=== PATIENT | female | born 1980 | race Caucasian/White ===

== ENCOUNTER 2024-07-09 08:26 | Outpatient (AMB) | payer BC, SELFPAY ==
--- NOTE | 2024-07-09 08:40 | AMB.GYNCLNOT ---
Vital Signs 07/09/24 08:51 Height 1.6 m Height Method Stated Weight 83.461 kg Weight Measurement Method Standing Scale BMI 32.5 BP 142/94 H Blood Pressure Source Automatic Cuff Blood Pressure Location Right Upper Arm Position Sitting Respiration 17 Pulse 74 Pulse Source Monitor Temp 97.1 F Temp Source Temporal Artery Scan Pulse Oximetry (%) 98 Oxygen Delivery Method Room Air Allergies/Home Meds Allergies & Medications Allergies No Known Allergies Allergy (Verified 07/09/24 12:57) Medication Reconciliation No Known Home Medications 07/09/24 [History Confirmed 07/09/24] Intake Visit Data Collection New Patient or Established: New Patient (never been to [facility]) Reason for Visit:: ANNUAL EXAM Seen by Clinical Staff ONLY (RN/MA): No Technical Training Specialist Required: No Do You Feel Safe at Home: Yes Authorities Contacted: N/A PCP or OBGYN visit in last 3 months: No Hx Now: No Are you currently on any form of Control: No Last menstrual period: 06/29/24 Pain Present Currently: No Pain Scale Used: Hooker-Scott/Numerical Pain scale:: 0 Smoking Status Smoking Status: Never smoker 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 Went off it. They have not been preventing then since then. They have not gotten . The patient does not desire control but she also does not desire another . 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 1. Little interest or pleasure in doing things: not at all 2. Feeling down, depressed, or hopeless: not at all Total score: 0 PHQ-9 3. Trouble falling or staying asleep, or sleeping too much: Not at all 4. Feeling tired or having little energy: Not at all 5. Poor appetite or overeating: Not at all 6. Feeling bad about yourself - or that you are a failure or have let yourself or your family down: Not at all 7. Trouble concentrating on things, such as reading the newspaper or watching television: Not at all 8. Moving or speaking so slowly that other people could have noticed? - Or the opposite - being so fidgety or restless that you have been moving around a lot more than usual: not at all 9. Thoughts that you would be better off or of hurting yourself in some way: Not at all Total score: 0 If you checked off any problems, how difficult have these problems made it for you to do your work, take care of things at home, or get along with other people?: not difficult at all Source: Developed by Drs. Vini Ruiz, Amara Alcaraz, Min Ramesh and colleagues, with an educational zahira from [employer]. 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 Has 3 sons, Syed 23, Linus 12, Nadir 6. Tobacco History Smoking Status: Never smoker Alcohol History Alcohol Intake: Current Alcohol Intake Frequency: holidays/special occasions only Domestic Abuse History Do You Feel Safe at Home: Yes History of Present Illness HPI Narrative The patient is a 44-year-old -0-1-3 history of vaginal delivery x 3 in the past with 1 miscarriage who presents for an annual exam. She used to see me in [place]. Her cycles are still regular with moderate flow 28 days apart lasting about 6 days. The patient was on the control patch until 2 years ago. She then stopped control to see if she could get . They have been not preventing for greater than 2 years and have not achieved . The patient states now she thinks she is too old. She declines an IUD, control pills, the patch, the ring or Nexplanon for control. She does decline surgical management in the form of a tubal ligation. The patient will continue use timing for contraception. Review of Systems Review of Systems Narrative Review of Systems: The patient denies pelvic pain, abnormal discharge, or bleeding between cycles. She did denies incontinence. No breast complaints. No hot flashes, no night sweats. Her last Pap was a year ago. Exam General Limitations: no limitations General Appearance: alert, in no apparent distress, comfortable, cooperative, healthy appearing, well developed and well groomed Neck Neck exam: Present normal inspection, full ROM and trachea midline Chest Chest inspection: Present normal inspection and symmetric chest wall rise Exp Chest Breast: bilateral: other (Normal breast exam bilaterally. Breast implants bilaterally.) Resp Respiratory exam: Present normal lung sounds bilaterally Card Cardiovascular exam: Present regular rate, normal rhythm and normal heart sounds Abdominal Abdominal exam: Present soft and scar (Large abdominoplasty scar present) External exam: Present normal external exam Speculum exam: Present normal speculum exam and other (Some descensus of the pelvic sidewalls no significant cystocele or rectocele present no uterine prolapse.) Bimanual exam: Present normal bimanual exam (Anteverted) Extremities Extremities exam: Present normal inspection and full ROM Psych Psychiatric exam: Present normal affect and normal mood Skin Skin exam: Present warm, dry, intact and normal color Office Procedures OB Clinic LOC & Office Proc's Nursing/Assessment Patient Status: Initial/New Patient OB Clinic Nursing Assessment: Medication Reconciliation, Update PMH in EMR and Vital Signs OB Clinic Coordination of Care: Education Complex Pt/Fam, Consent,records obtained, informed consent, Lab and Imaging orders and Staff clarify orders Miscellaneous Interventions: Breast Exam and Pelvic/Pap Smear Set up New Patient Charge New Patient Point Assignment: 1129 New Patient Point Charge: BOWL TURNER Level 4 ([id number]) In Clinic Procedures Pap Smear: Yes Assessment & Plan Diagnosis / Problem List (1) Women's annual routine gynecological examination: Status: Acute Assessment and Plan: Pap with high-risk HPV performed. Breast exam done and encouraged. Mammogram ordered. Primary care names given. Patient will follow-[facility] at [facility] with Dr. White for primary care. She will follow-up yearly or as needed. She will need colon screening through her primary care. TODDLER NANNY: Papsmear Pap Smear Procedure Chaparone in room during procedure?: No Pre-op diagnosis general: Annual Exam Post-op diagnosis procedure note: Same Procedure Notes:: Pap with cotesting to HPV performed Papsmear completed: yes
--- NOTE | 2024-07-09 08:50 | AMB.GYNCLNOT ---
Vital Signs 07/09/24 08:51 Height 1.6 m Height Method Stated Weight 83.461 kg Weight Measurement Method Standing Scale BMI 32.5 BP 142/94 H Blood Pressure Source Automatic Cuff Blood Pressure Location Right Upper Arm Position Sitting Respiration 17 Pulse 74 Pulse Source Monitor Temp 97.1 F Temp Source Temporal Artery Scan Pulse Oximetry (%) 98 Oxygen Delivery Method Room Air Allergies/Home Meds Allergies & Medications Allergies No Known Allergies Allergy (Verified 07/09/24 08:44) Medication Reconciliation No Known Home Medications 07/09/24 [History Confirmed 07/09/24] Intake Visit Data Collection New Patient or Established: New Patient (never been to [facility]) Reason for Visit:: ANNUAL EXAM Seen by Clinical Staff ONLY (RN/MA): No Juice Standardizer Required: No Do You Feel Safe at Home: Yes Authorities Contacted: N/A PCP or OBGYN visit in last 3 months: No Hx Now: No Are you currently on any form of Control: No Last menstrual period: 06/29/24 Pain Present Currently: No Pain Scale Used: Hooker-Scott/Numerical Pain scale:: 0 Smoking Status Smoking Status: Never smoker 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 1. Little interest or pleasure in doing things: not at all PHQ-9 3. Trouble falling or staying asleep, or sleeping too much: Not at all 4. Feeling tired or having little energy: Not at all 5. Poor appetite or overeating: Not at all 6. Feeling bad about yourself - or that you are a failure or have let yourself or your family down: Not at all 7. Trouble concentrating on things, such as reading the newspaper or watching television: Not at all 8. Moving or speaking so slowly that other people could have noticed? - Or the opposite - being so fidgety or restless that you have been moving around a lot more than usual: not at all Source: Developed by Drs. Vini LAmara Mejia Kurt Kroenke and colleagues, with an educational zahira from [employer]. Social History Living Situation History Marital Status: Lives With: Family Housing: House Tobacco History Smoking Status: Never smoker Alcohol History Alcohol Intake: Current Alcohol Intake Frequency: holidays/special occasions only Domestic Abuse History Do You Feel Safe at Home: Yes Office Procedures OB Clinic LOC & Office Proc's Nursing/Assessment Patient Status: Initial/New Patient OB Clinic Nursing Assessment: Medication Reconciliation, Update PMH in EMR and Vital Signs OB Clinic Coordination of Care: Education Complex Pt/Fam, Consent,records obtained, informed consent, Lab and Imaging orders and Staff clarify orders Miscellaneous Interventions: Breast Exam and Pelvic/Pap Smear Set up New Patient Charge New Patient Point Assignment: 1129 New Patient Point Charge: VOCATIONAL REHABILITATION CONSULTANT Level 4 ([id number]) In Clinic Procedures Pap Smear: Yes MARKETING BUSINESS ANALYST: Papsmear Pap Smear Procedure Chaparone in room during procedure?: No Post-op diagnosis procedure note: Same Papsmear completed: yes
[2024-07-09 08:51] VITALS: BP 142/94; PULSE 74; RESP 17; TEMP 36.2; O2SAT 98; BMI 32.5
== END 2024-07-09 09:19 | disposition home or self-care (01) ==
LOC: HODSOBC 08:26
PROVIDERS: Supervising Provider Obstetrics & Gynecology; Visit Provider Obstetrics & Gynecology
DX: Z01.419 Encounter for gynecological examination (general) (routine) without abnormal findings (principal); Z11.51 Encounter for screening for human papillomavirus (HPV); Z98.82 Breast implant status
CPT/HCPCS: 99204; Q0091; G0463